=== PATIENT | male | born 1960 | race Caucasian/White ===

== ENCOUNTER 2018-04-16 00:59 | Observation (INO) | payer OTHER ==
[~2018-04-16 00:59] MED LIST: LEVEMIR SQ; METF1000 PO
[2018-04-16 08:10] VITALS: BP 99/54; PULSE 55; RESP 16; TEMP 96.2; O2SAT 96
[2018-04-16] MEDS ORDERED: ACETAMINOPHEN 500 MG CPLT PO PRN (08:15)
[2018-04-16] MEDS ORDERED: ONDANSETRON HCL 4 MG/2 ML VIAL IV PUSH PRN (08:15)
[2018-04-16] MEDS ORDERED: NITROGLYCERIN 0.4 MG SL 25 TABS/BTL SL PRN (08:15)
[2018-04-16] MEDS ORDERED: SODIUM CHLORIDE 0.9% FLUSH 10 ML FLUSH IV FLUSH PRN (08:15)
[2018-04-16] MEDS ORDERED: SODIUM CHLORIDE 0.9% FLUSH 10 ML FLUSH IV FLUSH SCH (09:00)
[2018-04-16] MEDS ORDERED: ASPIRIN 325 MG TAB PO SCH (09:00)
[2018-04-16] MEDS ORDERED: DEXTROSE 50% IN WATER 50 ML VIAL(D50) IV PUSH PRN (10:00)
[2018-04-16] MEDS ORDERED: GLUCAGON 1 MG/ML VIAL OTHER PRN (10:00)
--- NOTE | 2018-04-16 10:09 | HHI.HP ---
[facility] Service Chest pain center Primary Care Physician Met care Was to see a new doctor Dr. Barone on June 01 Chief Complaint Elevated glucose Chest pressure History of Present Illness 58-year-old gentleman from the [facility] who presented to the [facility] with a blood glucose of 513. The patient ran out of his medication and had called his physician for removal but the office took over 3 days to call in his prescription. As a result he was out of his metformin for almost a week and his blood sugar elevated to 513. He was seen in the emergency room and ultrasound and treated with a blood sugar coming down into the 200s. They thought it was dropping and send him home. Within hours after going home his sugar went back up to 485 and he also began to notice some vague pressure-like discomfort in his mid chest radiating through to his back. He then returned to the emergency room there and was transferred here to the chest pain center. The pressure has been relatively constant although there has been some fluctuation. There are no precipitating or relieving factors no associated symptoms of diaphoresis shortness of breath. There was some slight nausea but he believes this was due to his sugar. The patient has a history of coronary artery disease undergoing coronary artery bypass grafting 3 in the [facility] in 2013. He was seen last by his machine pecan picker 2 years ago and an exercise stress test was done at that time which was negative. The pain he is currently experiencing is not like that he had with his heart problem previous. Review of Systems Consitutional: COMPLAINS OF: Fatigue Cardiovascular: COMPLAINS OF: See HPI Gastrointestinal: COMPLAINS OF: Nausea Musculoskeletal: COMPLAINS OF: Back pain Past Family Social History Allergies: Coded Allergies: No Known Allergies (Unverified Allergy, Unknown, 04/16/18) Past Medical History Hypertension Borderline cholesterol Chronic back pain Past Surgical History Coronary artery bypass grafting 3 in 2013 Reported Medications Reported Meds & Active Scripts Active Levemir Inj (Insulin Detemir) 1,000 unit/ 10 ML Vial 16 Units SQ HS 14 Days Do not mix with any other Insulin. Metformin (Metformin HCl) 1,000 Mg Tab 1,000 Mg PO BIDPC Active Ordered Medications Current Medications Medications (Trade) Dose Ordered Sig/Padmini Route Start Time Stop Time Status Last Admin (NS Flush) 2 ml UNSCH PRN IV FLUSH 04/16/18 08:15 (NS Flush) 2 ml BID IV FLUSH 04/16/18 09:00 (Tylenol) 500 mg Q4H PRN PO 04/16/18 08:15 (Zofran Inj) 4 mg Q6H PRN IV PUSH 04/16/18 08:15 (Nitrostat Sl) 0.4 mg Q5M PRN SL 04/16/18 08:15 (Aspirin) 325 mg DAILY PO 04/16/18 09:00 (D50w (Vial) Inj) 50 ml UNSCH PRN IV PUSH 04/16/18 10:00 UNV (Glucagon Inj) 1 mg UNSCH PRN OTHER 04/16/18 10:00 UNV (NovoLOG SUPPLEMENTAL SCALE) 1 ACHS SLIDING SCALE SQ 04/16/18 12:00 UNV Family History Father of leukemia at age 75/76 Mother is living with diabetes Social History No alcohol, tobacco, or substance abuse. Disabled with Social Security as a result of his previous heart surgery Physical Exam Vital Signs Vital Signs Date Time Temp Pulse Resp B/P (MAP) Pulse Ox O2 Delivery O2 Flow Rate FiO2 04/16/18 08:10 96.2 55 16 99/54 (69) 96 Physical Exam Well-nourished well-developed man in no acute distress Head normocephalic atraumatic Eyes PERRLA EOMI sclera clear Mouth mucous membranes moist and well papillated no lesions Neck supple no JVD masses nodes or bruits Chest clear to auscultation with no rales wheezes or rhonchi. Well-healed midline sternal scar Cardiovascular regular rhythm without gallop rub or murmur Abdomen soft nontender no guarding rebound no hepatosplenomegaly Extremities left lower extremity shows scarring from previous vein harvesting and a well-healed area just above the left ankle of undetermined etiology. Pulses are mildly diminished but intact Neurologically cranial nerves are intact motor is appropriate and appears equal Imaging Chest x-ray is unremarkable Course The patient has ruled out thus far using chest pain protocol. Once protocol is completed he will be evaluated with a nuclear stress test. In the meantime an effort will be made to get his sugar under control. Plan is to discharge to follow-up with [facility] care as scheduled with a request to move his June 01 appointment forward. Caprini VTE Risk Assessment Caprini VTE Risk Assessment: No/Low Risk (score <= 1) Caprini Risk Assessment Model Point Value = 1 Point Value = 2 Point Value = 3 Point Value = 5 Age 41-60 Minor surgery BMI > 25 kg/m2 Swollen legs Varicose veins or History of unexplained or recurrent spontaneous Oral contraceptives or hormone replacement Sepsis (< 1 month) Serious lung disease, including pneumonia (< 1 month) Abnormal pulmonary function Acute myocardial infarction Congestive heart failure (< 1 month) History of inflammatory bowel disease Medical patient at bed rest Age 61-74 Arthroscopic surgery Major open surgery (> 45 min) Laparoscopic surgery (> 45 min) Malignancy Confined to bed (> 72 hours) Immobilizing plaster cast Central venous access Age >= 75 History of VTE Family history of VTE Factor V Leiden Prothrombin [id number] Lupus anticoagulant Anticardiolipin antibodies Elevated serum homocysteine Heparin-induced thrombocytopenia Other congenital or acquired thrombophilia Stroke (< 1 month) Elective arthroplasty Hip, pelvis, or leg fracture Acute spinal cord injury (< 1 month) Prophylaxis Regimen Total Risk Factor Score Risk Level Prophylaxis Regimen 0-1 Low Early ambulation 2 Moderate Order ONE of the following: *Sequential Compression Device (SCD) *Heparin 5000 units SQ BID 3-4 Higher Order ONE of the following medications: *Heparin 5000 units SQ TID *Enoxaparin/Lovenox 40 mg SQ daily (WT < 150 kg, CrCl > 30 mL/min) *Enoxaparin/Lovenox 30 mg SQ daily (WT < 150 kg, CrCl > 10-29 mL/min) *Enoxaparin/Lovenox 30 mg SQ BID (WT < 150 kg, CrCl > 30 mL/min) AND/OR *Sequential Compression Device (SCD) 5 or more Highest Order ONE of the following medications: *Heparin 5000 units SQ TID (Preferred with Epidurals) *Enoxaparin/Lovenox 40 mg SQ daily (WT < 150 kg, CrCl > 30 mL/min) *Enoxaparin/Lovenox 30 mg SQ daily (WT < 150 kg, CrCl > 10-29 mL/min) *Enoxaparin/Lovenox 30 mg SQ BID (WT < 150 kg, CrCl > 30 mL/min) AND *Sequential Compression Device (SCD) Assessment and Plan Problem List: (1) CAD (coronary artery disease) ICD Codes: I25.10 - Atherosclerotic heart disease of [place] coronary artery without angina pectoris Status: Chronic Plan: Will evaluate and rule out for ongoing ischemia but if negative patient will follow up with his primary care physician and machine pecan picker (2) Chest pressure ICD Codes: R07.89 - Other chest pain Status: Acute Plan: Current chest pain pressure is most likely not cardiac in origin although will be evaluated using chest pain center protocol. If positive he will be admitted for evaluation otherwise will be referred for outpatient follow -up (3) Diabetes mellitus ICD Codes: E11.9 - Type 2 diabetes mellitus without complications Status: Chronic Plan: We will be sure on discharge the patient has his medications and he will be referred for follow-up with Medicare (4) Hypertension ICD Codes: I10 - Essential (primary) hypertension Status: Chronic Plan: Continue with current medication and follow-up with [facility] care (5) Back pain ICD Codes: M54.9 - Dorsalgia, unspecified Status: Chronic Plan: Patient was scheduled for an epidural today he is to contact pain management group and request rescheduling after he is discharged Dmitry Smalls MD April 16, 2018 10:09
[2018-04-16] MEDS ORDERED: INSULIN ASPART SUPPLEMENTAL SCALE SQ SCH (12:00)
[2018-04-16] MEDS ORDERED: REGADENOSON INJ 0.4 MG/5 ML SYR ONE (12:22)
--- NOTE | 2018-04-16 14:06 | RADRPT ---
EXAM DATE: 04/16/2018 1:39 PM EDT AGE/SEX: 58 years / Male INDICATIONS:Angina. . Chest pain. CLINICAL DATA: This is the patient's initial encounter. Patient reports that signs and symptoms have been present for 1 day and indicates a pain score of 3/10. MEDICAL/SURGICAL HISTORY: Diabetes mellitus type II. CABG. COMPARISON: No prior [facility] exams available for comparison. No external comparison. DOSE: 8.5 mCi Tc 99m Myoview at rest 27.2 mCi [id number] at stress 0.4 mg Lexiscan STRESS SYMPTOMS: Shortness of breath. EJECTION FRACTION: 67 % TECHNIQUE: The patient underwent pharmacologic stress with infusion of prescribed dose. Continuous ECG tracing was monitored during stress. Gated SPECT imaging was performed after stress and conventi onal SPECT imaging was performed at rest. The examination was performed on a SPECT/CT scanner, both attenuation and non-corrected datasets were reviewed. FINDINGS: Distribution: The maximum perfused segment at stress is in the septum and lateral wall. Perfusion Study: The pattern of perfusion at stress is within normal limits. Gated Study: There are intact wall motion and wall thickening without hypokinetic or dyskinetic segm ents. The ejection fraction is calculated at 67%. RISK CATEGORY: Low (<1% Annual Motality Rate) CONCLUSION: 1. No reversibility to suggest ischemia. 2. Normal wall motion with ejection fraction 67%. Electronically signed by: Boris Sow MD 04/16/2018 2:05 PM EDT
[2018-04-16] MEDS ORDERED: LISI2.5T3 PO (14:24)
--- NOTE | 2018-04-16 14:25 | HHI.DCPOC ---
Discharge Care Plan Diagnosis: (1) Hx of coronary artery disease (2) Hx of CABG (3) Atypical chest pain (4) Hyperglycemia (5) Diabetes mellitus Goals to Promote Your Health * To prevent worsening of your condition and complications * To maintain your health at the optimal level Directions to Meet Your Goals Take your medications as prescribed Follow your dietary instruction Follow activity as directed Keep your appointments as scheduled Take your immunizations and boosters as scheduled If your symptoms worsen call your PCP, if no PCP go to Urgent Care Center or Emergency Room Smoking is Dangerous to Your Health. Avoid second hand smoke Call the 24-hour hour crisis hotline for domestic abuse at [facility] April 16, 2018 14:25
[2018-04-16 14:35] VITALS: O2SAT 96
[2018-04-16 16:00] VITALS: BP 153/73; PULSE 61; RESP 18; TEMP 96.8; O2SAT 98
--- NOTE | 2018-04-17 13:00 | TR ---
Date Performed: 04/16/2018 Time Performed: 12:28:06 DOCTOR: Jarrod Lopez DRUG LIST: CLINICAL HISTORY: REASON FOR TEST: REASON FOR ENDING: OBSERVATION: CONCLUSION: COMMENTS: Lexiscan stress test was performed under standard four minute protocol. Radionuclide was injected one minute prior to ending the test. No electrocardiographic abormalities were present t o suggest ischemia. Nuclear imaging and interpretation are pending.
== END 2018-04-16 16:55 | disposition home or self-care (01) ==
LOC: NEDDLT 00:59 → UNDOADMOB 07:43 → NEPHCDU 07:43 → UNDODISOB 16:55
PROVIDERS: ADMIT Internal Medicine Cardiovascular Disease; ATTEND Internal Medicine Cardiovascular Disease
DX: R07.89 Other chest pain (principal); I25.10 Atherosclerotic heart disease of native coronary artery without angina pectoris; I10 Essential (primary) hypertension; E11.65 Type 2 diabetes mellitus with hyperglycemia; M54.9 Dorsalgia, unspecified; Z95.1 Presence of aortocoronary bypass graft; Z83.3 Family history of diabetes mellitus; Z80.6 Family history of leukemia
CPT/HCPCS: 71046; 78452; 80048; 82550; 82948; 83735; 84484; 85025; 85610; 85730; 93005; 93017; 96374; 96375; 99285; A9502; G0378; J1815; J2270; J2785; J7030